=== PATIENT | male | born 1980 | race Caucasian/White ===

== ENCOUNTER 2024-08-06 14:50 | Outpatient (CLI) | payer BC, SELFPAY | END 2024-08-06 14:51 | disposition home or self-care (01) | PROVIDERS: PCP Family Medicine; Visit Provider Family Medicine | DX: Z00.00 Encounter for general adult medical examination without abnormal findings (principal); R79.89 Other specified abnormal findings of blood chemistry; E78.5 Hyperlipidemia, unspecified; Z12.5 Encounter for screening for malignant neoplasm of prostate | CPT/HCPCS: 80053; 80061; G0103 ==

== ENCOUNTER 2024-08-20 07:07 | Outpatient (CLI) | payer BC, SELFPAY ==
--- NOTE | 2024-08-20 07:15 | CRLHL7_ITS ---
For Patients: As a result of the Century Cures Act, medical imaging exams and procedure reports are released immediately into your electronic medical record. You may view this report before your referring provider. If you have questions, please contact your health care provider. INDICATION: Elevated liver function tests and intermittent right quadrant discomfort TECHNIQUE: Conventional two-dimensional grayscale ultrasound of the right upper quadrant. COMPARISON: None. FINDINGS: The gallbladder is normal, with no evidence of stones. No gallbladder wall thickening or pericholecystic fluid is demonstrated. The patient is reportedly not tender over the gallbladder. No biliary ductal dilation is evident. The common bile duct measures 4 mm. There may be mild fatty change in the liver. The pancreas is within normal limits. The right kidney is unremarkable. The visualized portion of the abdominal aorta and inferior vena cava are negative. IMPRESSION: 1. Possible fatty change in the liver. 2. Normal gallbladder and bile ducts. Dictated by Cesar Johnson MD @ 08/21/2024 8:18:51 AM (Electronically Signed)
== END 2024-08-20 07:08 | disposition home or self-care (01) ==
LOC: US 07:07
PROVIDERS: PCP Family Medicine; Visit Provider Family Medicine
DX: R79.89 Other specified abnormal findings of blood chemistry (principal); R10.11 Right upper quadrant pain
CPT/HCPCS: 76705

== ENCOUNTER 2024-09-24 08:14 | Outpatient (CLI) | payer BC, SELFPAY ==
--- NOTE | 2024-09-24 10:22 | P.ANES_ITS ---
Anesthesia Charges Start Date/Time Anesthesia Start Date: 09/24/24 Anesthesia Start Time: 09:57 Stop Date/Time Anesthesia Stop Date: 09/24/24 Anesthesia Stop Time: 10:20 Coding CPT Codes CPT Codes: QUENTIN LWR INTST SCR COLSC - [id number] ([id number]) P1 - NORMAL HEALTHY PATIENT, QK - BUSINESS ANALYTICS ANALYST 2-4 CNCRNT ANES PROC, QX - TRIPE COOKER SVC W/ MED DIRECTION
--- NOTE | 2024-09-24 10:22 | W.ANESCHARGE ---
Anesthesia Charges Start Date/Time Anesthesia Start Date: 09/24/24 Anesthesia Start Time: 09:57 Stop Date/Time Anesthesia Stop Date: 09/24/24 Anesthesia Stop Time: 10:20 Coding CPT Codes CPT Codes: QUENTIN LWR INTST SCR COLSC - [id number] ([id number]) P1 - NORMAL HEALTHY PATIENT, QK - REDUCTION FURNACE OPERATOR 2-4 CNCRNT ANES PROC, QX - NEWS CONTENT SPECIALIST SVC W/ MED DIRECTION
--- NOTE | 2024-09-24 12:21 | P.ANES_ITS ---
Anesthesia Charges Start Date/Time Anesthesia Start Date: 09/24/24 Anesthesia Start Time: 09:57 Stop Date/Time Anesthesia Stop Date: 09/24/24 Anesthesia Stop Time: 10:20 Coding CPT Codes CPT Codes: QUENTIN LWR INTST SCR COLSC - [id number] ([id number]) QK - TOOL HONING MACHINE SET UP OPERATOR 2-4 CNCRNT ANES PROC, QX - [employer] PHYSICIAN SVC W/ MED DIRECTION, P1 - NORMAL HEALTHY PATIENT
--- NOTE | 2024-09-24 12:21 | W.ANESCHARGE ---
Anesthesia Charges Start Date/Time Anesthesia Start Date: 09/24/24 Anesthesia Start Time: 09:57 Stop Date/Time Anesthesia Stop Date: 09/24/24 Anesthesia Stop Time: 10:20 Coding CPT Codes CPT Codes: QUENTIN LWR INTST SCR COLSC - [id number] ([id number]) QK - THERAPIST ASST 2-4 CNCRNT ANES PROC, QX - BRAND ENGINEER SVC W/ MED DIRECTION, P1 - NORMAL HEALTHY PATIENT
== END 2024-09-24 08:15 | disposition home or self-care (01) ==
LOC: OP CLINIC 08:15
PROVIDERS: PCP Family Medicine; Visit Provider Surgery
DX: Z12.11 Encounter for screening for malignant neoplasm of colon (principal)
CPT/HCPCS: 00812; 45378; J2704

== ENCOUNTER 2025-07-01 08:26 | Outpatient (CLI) | payer BC, SELFPAY | END 2025-07-01 08:27 | disposition home or self-care (01) | LOC: NFLDREF 07-06 10:30 | PROVIDERS: PCP Family Medicine; Referring Provider Family Medicine; Visit Provider Family Medicine | DX: E78.5 Hyperlipidemia, unspecified (principal) | CPT/HCPCS: 80053; 80061 ==